=== PATIENT | male | born 1990 | race African-American/Black ===

== ENCOUNTER 2019-12-07 00:58 | Emergency (ER) | payer MEDICAID, OTHER ==
[~2019-12-07] VITALS: Ht 188 cm; Wt 73.0 kg
[2019-12-07] MEDS ORDERED: IBUPROFEN 600MG TABLET PO STA (01:21)
[2019-12-07 01:28] VITALS: BP 149/76
== END 2019-12-07 03:02 | disposition home or self-care (01) ==
LOC: ER 00:58
DX: S62.397A Other fracture of fifth metacarpal bone, left hand, initial encounter for closed fracture (principal); S62.395A Other fracture of fourth metacarpal bone, left hand, initial encounter for closed fracture; J45.909 Unspecified asthma, uncomplicated; F17.210 Nicotine dependence, cigarettes, uncomplicated; Z88.0 Allergy status to penicillin; Z91.013 Allergy to seafood; W22.01XA Walked into wall, initial encounter; Y93.89 Activity, other specified; Y92.018 Other place in single-family (private) house as the place of occurrence of the external cause
CPT/HCPCS: 29125; 73130; 99283

== ENCOUNTER 2021-05-15 19:26 | Emergency (ER) | payer MEDICAID ==
[~2021-05-15] VITALS: Ht 188 cm; Wt 73.0 kg
[2021-05-15] MEDS ORDERED: HYDROCODONE/ACETAMINOPHEN 5/325MG TABLET PO ONE (21:15)
[2021-05-15] MEDS ORDERED: ACETAMINOPHEN 325MG TABLET PO ONE (21:15)
[2021-05-15 21:24] VITALS: BP 126/68
== END 2021-05-16 00:24 | disposition home or self-care (01) ==
LOC: ER 19:26
DX: T14.8XXA Other injury of unspecified body region, initial encounter (principal); X58.XXXA Exposure to other specified factors, initial encounter; Y93.89 Activity, other specified; Y92.89 Other specified places as the place of occurrence of the external cause; Y99.8 Other external cause status; J45.909 Unspecified asthma, uncomplicated; F17.290 Nicotine dependence, other tobacco product, uncomplicated; Z88.0 Allergy status to penicillin
CPT/HCPCS: 29125; 73130; 99283